=== PATIENT | female | born 1990 | race Asian ===

== ENCOUNTER 2022-08-29 16:34 | Emergency (ER) | payer MEDICAID ==
[~2022-08-29] VITALS: Ht 167.6 cm; Wt 55.0 kg
[2022-08-29 16:49] VITALS: BP 115/71
== END 2022-08-29 19:32 | disposition left against medical advice (07) ==
LOC: ER 16:34
DX: M54.6 Pain in thoracic spine (principal); V86.99XA Unspecified occupant of other special all-terrain or other off-road motor vehicle injured in nontraffic accident, initial encounter; Y93.89 Activity, other specified; Y92.9 Unspecified place or not applicable
CPT/HCPCS: 81025; 99282